=== PATIENT | male | born 1965 | race Caucasian/White ===

== ENCOUNTER 2025-05-16 12:43 | Inpatient (IN) | payer OTHER ==
[~2025-05-16] VITALS: Ht 177.8 cm; Wt 90.0 kg
[2025-05-16] MEDS ORDERED: RISP-32 PO (13:14)
[2025-05-16] MEDS ORDERED: HYDR-4808 PO (13:14)
[2025-05-16] MEDS ORDERED: SERT-158 PO (13:14)
[2025-05-16] MEDS ORDERED: OXCA300T70 PO (13:14)
[2025-05-16 14:47] LABS: PLATELET COUNT (AUTO) 269 K/uL (150-450); RED BLOOD CELL COUNT(AUTO) 4.24 MIL/uL (4.50-5.90); RED CELL DISTRIBUTION WIDTH 13.4 % (11.5-14.5); WHITE BLOOD COUNT (AUTO) 8.7 K/uL (4.5-11.0)
[2025-05-16 14:56] LABS: CALCIUM, TOTAL 8.3 mg/dL (8.8-10.5); CREATININE 0.55 mg/dL (0.60-1.30); GLOMERULAR FILTR. RATE CALC > 60 mL/min (>60); GLUCOSE,RANDOM 77 mg/dL (70-110); SODIUM SERUM 125 mmol/L (136-145); UREA NITROGEN, BLOOD 20 mg/dL (7-18)
[2025-05-16 15:02] LABS: ASPARTATE AMINOTRANSFERASE 35.0 U/L (15-37); TOTAL PROTEIN, SERUM 7.3 g/dL (6.4-8.2)
[2025-05-16 15:08] LABS: TROPONIN I-HIGH SENSITIVITY 12 ng/L (<76)
[2025-05-16] MEDS: PERMETHRIN 1% 60 ML LOTION TP ONE (16:32)
[2025-05-16] MEDS: PERMETHRIN 5% 60 GM CREAM TP ONE (16:32)
[2025-05-16] MEDS ORDERED: HYDROCODONE/ACETAMINOPHEN 5-325 MG TABLET PO PRN (16:45)
[2025-05-16] MEDS ORDERED: MORPHINE SULFATE 4 MG/ML SYRINGE IVP PRN (16:45)
[2025-05-16] MEDS ORDERED: ACETAMINOPHEN 325 MG TABLET PO PRN (16:45)
[2025-05-16] MEDS ORDERED: BISACODYL 10 MG RECTAL RECTAL SUPPOSITORY PR PRN (16:45)
[2025-05-16] MEDS ORDERED: ONDANSETRON HCL 4 MG/2 ML VIAL IVP PRN (16:45)
[2025-05-16] MEDS ORDERED: MAGNESIUM HYDROXIDE SUSPENSION 30 ML UDCUP PO PRN (16:45)
[2025-05-16 17:09] LABS: APPEARANCE,URINE CLEAR (CLEAR); GLUCOSE, URINE (UA) NEGATIVE (NEGATIVE); LEUKOCYTE ESTERASE ,URINE NEGATIVE (NEGATIVE); NITRATE,URINE NEGATIVE (NEGATIVE); OCCULT BLOOD,URINE NEGATIVE (NEGATIVE); SPECIFIC GRAVITIY, URINE 1.010 (1.003-1.030)
[2025-05-16 17:12] LABS: CREATININE,URINE RANDOM 25.7 mg/dL (30.0-125.0); UREA NITROGEN,URINE RANDOM 459.0 mg/dL (350-1000)
[2025-05-16] MEDS: DOCUSATE SODIUM 100 MG CAPSULE PO SCH (21:00)
[2025-05-16 22:15] VITALS: BP 169/90; PULSE 20; PULSE 52; RESP 20; TEMP 97.9; O2SAT 100
[2025-05-16] MEDS: HEPARIN SODIUM,PORCINE 5,000 UNITS/ML VIAL SQ SCH (23:52)
[2025-05-17] VITALS (7 sets, daily range): BP systolic 125–175; BP diastolic 77–96; PULSE 58–154; RESP 17–19; TEMP 98.1–98.6; O2SAT 94–99
[2025-05-17] MEDS ORDERED: DOXY-354 PO (02:53)
[2025-05-17] MEDS: PANTOPRAZOLE SODIUM 40 MG DR TABLET PO SCH (09:00)
[2025-05-17 15:12] LABS: PLATELET COUNT (AUTO) 296 K/uL (150-450); RED BLOOD CELL COUNT(AUTO) 4.44 MIL/uL (4.50-5.90); RED CELL DISTRIBUTION WIDTH 13.5 % (11.5-14.5); WHITE BLOOD COUNT (AUTO) 11.2 K/uL (4.5-11.0)
[2025-05-17 15:23] LABS: CALCIUM, TOTAL 8.7 mg/dL (8.8-10.5); CREATININE 1.03 mg/dL (0.60-1.30); GLOMERULAR FILTR. RATE CALC > 60 mL/min (>60); GLUCOSE,RANDOM 106 mg/dL (70-110); UREA NITROGEN, BLOOD 22 mg/dL (7-18)
[2025-05-17 15:25] LABS: SODIUM SERUM 122 mmol/L (136-145)
[2025-05-18] MEDS: SODIUM CHLORIDE 0.9% 1,000 ML IV SCH
[2025-05-18 01:05] VITALS: BP 122/76; PULSE 65; RESP 18
[2025-05-18 04:53] VITALS: BP 125/88; PULSE 67; RESP 18; TEMP 98.2; O2SAT 96
[2025-05-18 06:40] LABS: PLATELET COUNT (AUTO) 280 K/uL (150-450); RED BLOOD CELL COUNT(AUTO) 4.36 MIL/uL (4.50-5.90); RED CELL DISTRIBUTION WIDTH 13.5 % (11.5-14.5); WHITE BLOOD COUNT (AUTO) 10.5 K/uL (4.5-11.0)
[2025-05-18 07:20] LABS: CALCIUM, TOTAL 8.5 mg/dL (8.8-10.5); CREATININE 0.63 mg/dL (0.60-1.30); GLOMERULAR FILTR. RATE CALC > 60 mL/min (>60); GLUCOSE,RANDOM 78 mg/dL (70-110); SODIUM SERUM 127 mmol/L (136-145); UREA NITROGEN, BLOOD 18 mg/dL (7-18)
[2025-05-18 08:45] VITALS: BP 149/79; PULSE 58; RESP 18; TEMP 97.5; O2SAT 98
[2025-05-18 12:17] VITALS: BP 144/73; PULSE 65; RESP 17; TEMP 98.1; O2SAT 98
[2025-05-18 16:01] VITALS: BP 146/94; PULSE 60; RESP 19; TEMP 98.1; O2SAT 98
[2025-05-18 20:57] VITALS: BP 134/72; PULSE 62; RESP 19; TEMP 97.9; O2SAT 98
[2025-05-19 00:39] VITALS: BP 119/80; PULSE 65; RESP 19; TEMP 98.1; O2SAT 96
[2025-05-19] MEDS: ZOLPIDEM TARTRATE 5 MG TABLET PO PRN (01:46)
[2025-05-19 04:25] VITALS: BP 153/79; PULSE 67; RESP 18; TEMP 98.2; O2SAT 95
[2025-05-19 08:50] VITALS: BP 141/92; PULSE 63; RESP 18; TEMP 98.1; O2SAT 100
[2025-05-19 10:56] LABS: PLATELET COUNT (AUTO) 264 K/uL (150-450); RED BLOOD CELL COUNT(AUTO) 4.40 MIL/uL (4.50-5.90); RED CELL DISTRIBUTION WIDTH 13.5 % (11.5-14.5); WHITE BLOOD COUNT (AUTO) 8.0 K/uL (4.5-11.0)
[2025-05-19 11:05] LABS: CALCIUM, TOTAL 8.4 mg/dL (8.8-10.5); CREATININE 0.86 mg/dL (0.60-1.30); GLOMERULAR FILTR. RATE CALC > 60 mL/min (>60); GLUCOSE,RANDOM 119 mg/dL (70-110); SODIUM SERUM 129 mmol/L (136-145); UREA NITROGEN, BLOOD 18 mg/dL (7-18)
[2025-05-19 12:05] VITALS: BP 120/91; PULSE 62; RESP 18; TEMP 98.1; O2SAT 100
[2025-05-19 16:04] VITALS: BP 165/85; PULSE 60; RESP 19; TEMP 97.3; O2SAT 99
[2025-05-19 20:14] VITALS: BP 142/96; PULSE 64; RESP 17; TEMP 98.2; O2SAT 96
[2025-05-20 00:06] VITALS: BP 147/68; PULSE 77; RESP 18; TEMP 98.3; O2SAT 97
[2025-05-20 04:00] VITALS: BP 148/63; PULSE 54; RESP 18; TEMP 98.1; O2SAT 96
[2025-05-20 08:26] VITALS: BP 155/82; PULSE 63; RESP 18; TEMP 97.7; O2SAT 97
[2025-05-20] MEDS: SERTRALINE HCL 50 MG TABLET PO SCH (08:54)
[2025-05-20 12:16] LABS: PLATELET COUNT (AUTO) 249 K/uL (150-450); RED BLOOD CELL COUNT(AUTO) 4.22 MIL/uL (4.50-5.90); RED CELL DISTRIBUTION WIDTH 13.3 % (11.5-14.5); WHITE BLOOD COUNT (AUTO) 8.0 K/uL (4.5-11.0)
[2025-05-20 12:32] LABS: ASPARTATE AMINOTRANSFERASE 49 U/L (15-37); CALCIUM, TOTAL 8.2 mg/dL (8.8-10.5); CREATININE 0.64 mg/dL (0.60-1.30); GLOMERULAR FILTR. RATE CALC > 60 mL/min (>60); GLUCOSE,RANDOM 76 mg/dL (70-110); SODIUM SERUM 130 mmol/L (136-145); TOTAL PROTEIN, SERUM 7.0 g/dL (6.4-8.2); UREA NITROGEN, BLOOD 17 mg/dL (7-18)
[2025-05-20] MEDS: SODIUM CHLORIDE 1 GM TABLET PO ONE (14:37)
[2025-05-20 19:50] VITALS: BP 129/107; PULSE 63; RESP 18; TEMP 97.7; O2SAT 97
[2025-05-21 04:44] VITALS: BP 166/74; PULSE 75; RESP 19; TEMP 98.1; O2SAT 97
[2025-05-21 08:45] VITALS: BP 128/74; PULSE 70; RESP 18; TEMP 98.3; O2SAT 97
[2025-05-21 11:32] LABS: CALCIUM, TOTAL 8.3 mg/dL (8.8-10.5); CREATININE 0.72 mg/dL (0.60-1.30); GLOMERULAR FILTR. RATE CALC > 60 mL/min (>60); GLUCOSE,RANDOM 77 mg/dL (70-110); SODIUM SERUM 129 mmol/L (136-145); UREA NITROGEN, BLOOD 15 mg/dL (7-18)
[2025-05-21] MEDS: TOLVAPTAN 15 MG TABLET PO ONE (13:31)
[2025-05-21 20:59] VITALS: BP 120/65; PULSE 58; RESP 18; TEMP 97.9; O2SAT 97
[2025-05-22 06:04] VITALS: BP 128/76; PULSE 60; RESP 18; TEMP 98.2; O2SAT 98
[2025-05-22 09:14] VITALS: BP 122/62; PULSE 53; RESP 18; TEMP 97.7; O2SAT 97
[2025-05-22 12:22] LABS: CALCIUM, TOTAL 8.5 mg/dL (8.8-10.5); CREATININE 0.80 mg/dL (0.60-1.30); GLOMERULAR FILTR. RATE CALC > 60 mL/min (>60); GLUCOSE,RANDOM 86 mg/dL (70-110); SODIUM SERUM 133 mmol/L (136-145); UREA NITROGEN, BLOOD 21 mg/dL (7-18)
[2025-05-22] MEDS: TOLVAPTAN 15 MG TABLET PO ONE (18:15)
[2025-05-22 19:42] VITALS: BP 137/77; PULSE 63; RESP 18; TEMP 99; O2SAT 97
[2025-05-22 20:48] VITALS: TEMP 98.8
[2025-05-23 06:08] VITALS: BP 146/90; PULSE 64; RESP 19; TEMP 98.1; O2SAT 96
[2025-05-23 06:39] LABS: CALCIUM, TOTAL 8.7 mg/dL (8.8-10.5); CREATININE 0.76 mg/dL (0.60-1.30); GLOMERULAR FILTR. RATE CALC > 60 mL/min (>60); GLUCOSE,RANDOM 77 mg/dL (70-110); SODIUM SERUM 138 mmol/L (136-145); UREA NITROGEN, BLOOD 19 mg/dL (7-18)
[2025-05-23 08:52] VITALS: BP 140/73; PULSE 55; RESP 18; TEMP 98.4; O2SAT 98
[2025-05-23] MEDS ORDERED: DOCU-385 PO (16:27)
[2025-05-23] MEDS ORDERED: PANT-31 PO (16:28)
[2025-05-23] MEDS ORDERED: ACET-2247 PO (16:29)
[2025-05-23] MEDS ORDERED: MAGN-169 PO (16:29)
== END 2025-05-23 18:18 | DRG 640 ==
LOC: EMS 12:46 → EDH 15:47 → 5N 21:35 → 6S 05-20 03:26
PROVIDERS: ADMIT Internal Medicine; ATTEND Internal Medicine
PROC: GZ58ZZZ Individual Psychotherapy, Cognitive-Behavioral (ICD-10-PCS; principal; 2025-05-21)
PROC: GZ56ZZZ Individual Psychotherapy, Supportive (ICD-10-PCS; 2025-05-21)
DX: E87.1 Hypo-osmolality and hyponatremia (principal); G93.41 Metabolic encephalopathy; F29 Unspecified psychosis not due to a substance or known physiological condition; B85.0 Pediculosis due to Pediculus humanus capitis; D64.9 Anemia, unspecified; B86 Scabies; I10 Essential (primary) hypertension; F41.9 Anxiety disorder, unspecified; R63.1 Polydipsia; Z79.899 Other long term (current) drug therapy
CPT/HCPCS: 80048; 80053; 80076; 81003; 82533; 82570; 83930; 83935; 84300; 84439; 84443; 84484; 84540; 85025; 93005; 99285; J0360; J1200; J1644; J2270; J7030